=== PATIENT | male | born 1990 | race African-American/Black ===

== ENCOUNTER 2020-12-11 02:39 | Emergency (ER) | payer MEDICAID ==
[~2020-12-11] VITALS: Ht 175.3 cm; Wt 69.0 kg
[2020-12-11] MEDS ORDERED: SODIUM CHLORIDE 0.9% 250 ML IRRIG SOLUTION BOTTLE IRRIG ONE (02:45)
[2020-12-11] MEDS ORDERED: HYDROCODONE/ACETAMINOPHEN 5-325 MG TABLET PO ONE ×2 (02:45→06:00)
[2020-12-11] MEDS ORDERED: PERTUSS(ACELL),DIPH,TET VAC/PF 0.5 ML SYRINGE IM. ONE (02:45)
[2020-12-11] MEDS ORDERED: LIDOCAINE 1% 10 ML VIAL ID ONE (02:45)
[2020-12-11 06:48] VITALS: BP 146/85
== END 2020-12-11 07:07 | disposition home or self-care (01) ==
LOC: EMS 02:39
DX: S01.112A Laceration without foreign body of left eyelid and periocular area, initial encounter (principal); S11.91XA Laceration without foreign body of unspecified part of neck, initial encounter; F12.90 Cannabis use, unspecified, uncomplicated; Y04.0XXA Assault by unarmed brawl or fight, initial encounter; Y93.89 Activity, other specified; Y92.89 Other specified places as the place of occurrence of the external cause; Y99.8 Other external cause status
CPT/HCPCS: 12004; 12052; 70450; 72125; 90471; 90715; 96372; 99291; J0690; J3490; 12013

== ENCOUNTER 2020-12-18 15:16 | Emergency (ER) | payer MEDICAID ==
[~2020-12-18] VITALS: Ht 175.3 cm; Wt 69.0 kg
[2020-12-18 15:19] VITALS: BP 144/90
== END 2020-12-18 17:44 | disposition home or self-care (01) ==
LOC: EMS 15:19
DX: S01.112D Laceration without foreign body of left eyelid and periocular area, subsequent encounter (principal); S11.91XD Laceration without foreign body of unspecified part of neck, subsequent encounter; F12.90 Cannabis use, unspecified, uncomplicated; X58.XXXD Exposure to other specified factors, subsequent encounter
CPT/HCPCS: 99281; Z7502